=== PATIENT | female | born 1995 | race Caucasian/White ===

== ENCOUNTER 2017-11-15 14:52 | Emergency (ER) | payer SELFPAY ==
--- NOTE | 2017-11-15 17:26 | RAD ---
RIGHT HAND THREE VIEWS: 11/15/17 There is a fracture at the base of the middle phalanx of the ring finger, palmar surface of the PIP j oint. I cannot tell if this is new or old. Correlate with current site of pain. The remainder of the hand and wrist appear intact. IMPRESSION: Fracture at the base of the middle phalanx of the ring finger, age indeterminate. POS: HOME
== END 2017-11-15 16:00 | disposition home or self-care (01) ==
LOC: BURERS 14:52
DX: S60.031A Contusion of right middle finger without damage to nail, initial encounter (principal); S60.041A Contusion of right ring finger without damage to nail, initial encounter; J45.909 Unspecified asthma, uncomplicated; W20.8XXA Other cause of strike by thrown, projected or falling object, initial encounter

== ENCOUNTER 2018-10-21 14:44 | Emergency (ER) | payer SELFPAY | END 2018-10-21 15:10 | disposition home or self-care (01) | LOC: BURERS 14:44 | DX: T85.848A Pain due to other internal prosthetic devices, implants and grafts, initial encounter (principal); M79.602 Pain in left arm; M54.12 Radiculopathy, cervical region; J45.909 Unspecified asthma, uncomplicated; Z79.51 Long term (current) use of inhaled steroids | CPT/HCPCS: 99283 ==

== ENCOUNTER 2018-10-29 21:42 | Emergency (ER) | payer SELFPAY ==
[2018-10-29 22:11] LABS: Clarity Clear (Clear)
[2018-10-29 22:12] LABS: Bilirubin Small (Negative); Blood, Urine Trace (Negative); Glucose, Urine (Dipstick) Negative (Negative); Leukocyte Trace (Negative); Nitrite Negative (Negative); Protein, Urine (Dipstick) Trace mg/dL (Neg-Trace); Specific Gravity, Urine 1.026 (1.002-1.036)
[2018-10-29 22:13] LABS: Pregnancy Test - Urine (BHCG) Negative (Negative); Pregu Control Background? CLEAR/WHITE (CLR/WHITE); Pregu Control Bar Appear? YES (CONTROL BAR); Specific Gravity 1.026 (1.002-1.036)
[2018-10-29 22:15] LABS: Bacteria/HPF 1+ HPF (None Seen); Squamous Epithelial 0-3 HPF (0-3)
[2018-10-29] MEDS ORDERED: Nitrofurantoin Monohyd/M-Cryst 100 MG CAP ONE ×2 (22:25→22:27)
== END 2018-10-29 22:38 | disposition home or self-care (01) ==
LOC: BURERS 21:42
DX: N39.0 Urinary tract infection, site not specified (principal); R10.9 Unspecified abdominal pain; G89.29 Other chronic pain; R10.817 Generalized abdominal tenderness; Z79.51 Long term (current) use of inhaled steroids; Z79.899 Other long term (current) drug therapy
CPT/HCPCS: 81003; 81015; 81025; 87086; 99284

== ENCOUNTER 2019-06-17 11:22 | Emergency (ER) | payer OTHER, SELFPAY ==
[2019-06-17] MEDS ORDERED: Ondansetron ODT 4 MG TAB ONE (12:40)
== END 2019-06-17 12:50 ==
LOC: BURERS 11:22
DX: O98.512 Other viral diseases complicating pregnancy, second trimester (principal); B34.9 Viral infection, unspecified; O21.9 Vomiting of pregnancy, unspecified; O99.512 Diseases of the respiratory system complicating pregnancy, second trimester; J45.909 Unspecified asthma, uncomplicated; Z79.51 Long term (current) use of inhaled steroids; Z79.899 Other long term (current) drug therapy; Z3A.17 17 weeks gestation of pregnancy
CPT/HCPCS: 99283; Q0162

== ENCOUNTER 2020-07-30 22:45 | Emergency (ER) | payer OTHER ==
[2020-07-30] MEDS ORDERED: AMOXicillin 250 MG CAP ONE (23:18)
[2020-07-30] MEDS ORDERED: Dexamethasone 4 MG TAB ONE (23:18)
[2020-07-30] MEDS ORDERED: NEOMYCIN-POLYMYXIN-HC EAR SUSP 200 DROP/10 ML BOT ONE (23:18)
== END 2020-07-30 23:30 | disposition home or self-care (01) ==
LOC: BURERS 22:45
DX: H60.502 Unspecified acute noninfective otitis externa, left ear (principal); Z79.899 Other long term (current) drug therapy; J45.909 Unspecified asthma, uncomplicated
CPT/HCPCS: 99282; J8540

== ENCOUNTER 2020-12-22 09:38 | Emergency (ER) | payer OTHER | END 2020-12-22 10:35 | disposition home or self-care (01) | LOC: BURERS 09:38 | DX: H66.92 Otitis media, unspecified, left ear (principal); J45.909 Unspecified asthma, uncomplicated | CPT/HCPCS: 99282 ==